=== PATIENT | male | born 1995 | race African-American/Black ===

== ENCOUNTER 2024-03-08 20:29 | Emergency (ER) | payer OTHER ==
[~2024-03-08] VITALS: Ht 170.2 cm; Wt 89.1 kg
[2024-03-08] MEDS ORDERED: Ketorolac 30 MG/ML VIAL IV ONE (22:15)
[2024-03-08] MEDS ORDERED: NS 1,000 ML IV ONE (22:15)
[2024-03-08] MEDS ORDERED: droPERidol 2.5 MG/ML 2 ML VIAL IV ONE (22:15)
[2024-03-08 22:22] LABS: BASO % 0.1 % (0.0-2.0); GRAN # 12.8 K/mm3 (1.4-6.5); GRAN % 85.6 % (42.2-75.2); HEMATOCRIT 47.7 % (42.0-52.0); HEMOGLOBIN 16.1 g/dl (13.5-18.0); LYMPH # 1.4 K/mm3 (1.2-3.4); LYMPH % 9.3 % (20.0-51.0); MEAN CELL VOLUME 92 fl (80.0-100.0); MEAN CORPUSCULAR HEMOGLOBIN 31 pg (27-31); MEAN CORPUSCULAR HGB CONC 34 g/dl (33.0-37.0); MEAN PLATELET VOLUME 10.6 fl (7.4-10.4); MONO # 0.7 K/mm3 (0.1-0.6); MONO % 4.8 % (1.7-9.3); PLATELET COUNT 231 K/mm3 (130-400); RED BLOOD COUNT 5.19 M/mm3 (4.20-5.60); REDCELL DISTRIBUTION WIDTH-CV 12.4 % (11.5-14.5)
[2024-03-08 22:35] LABS: ALBUMIN 4.6 g/dL (3.5-5.0); BILIRUBIN,TOTAL 0.7 mg/dL (0.2-1.2); CALCIUM 9.7 mg/dL (8.4-10.2); CREATININE, serum 1.01 mg/dL (0.72-1.25); POTASSIUM 3.7 mEq/L (3.5-4.5); TOTAL PROTEIN 8.4 g/dl (6.2-8.1)
[2024-03-08 23:11] LABS: C-REACTIVE PROTEIN 0.27 mg/dL (0.00-0.50)
[2024-03-09 00:12] LABS: COLLECTION METHOD CLEAN CATCH
[2024-03-09 00:36] LABS: PH 6.5 (5.0-8.5); URINE APPEARANCE CLEAR (CLEAR/HAZY); URINE BLOOD NEGATIVE (NEGATIVE); URINE COLOR YELLOW (YELLOW); URINE GLUCOSE NEGATIVE (NEGATIVE); URINE KETONE 1+ (NEGATIVE); URINE NITRATE NEGATIVE (NEGATIVE); URINE PROTEIN(semi-quant) 1+ (NEGATIVE); URINE UROBILINOGEN 0.2 E.U/dL (0.2-1.0)
[2024-03-09] MEDS ORDERED: NS 1,000 ML IV ONE (00:45)
[2024-03-09 00:58] VITALS: BP 130/70; PULSE 78; TEMP 97.6
[2024-03-09] MEDS ORDERED: Home Ondansetron ODT 4 MG #2 ODT/PACK PO ONE (01:00)
== END 2024-03-09 01:06 | disposition home or self-care (01) ==
LOC: COL.ER 20:29
PROVIDERS: Nurse Practitioner
DX: R11.2 Nausea with vomiting, unspecified (principal); R19.7 Diarrhea, unspecified; R51.9 Headache, unspecified
CPT/HCPCS: J1790; J1885; J7030